=== PATIENT | female | born 1990 | race Caucasian/White ===

== ENCOUNTER 2016-09-09 18:05 | Inpatient (IN) | payer OTHER ==
[~2016-09-09] VITALS: Ht 160 cm; Wt 51.7 kg
[2016-09-09 19:44] LABS: *URINE HCG, QUAL NEGATIVE (NEGATIVE)
[2016-09-09 19:46] LABS: *AMPHETAMINE, URINE POSITIVE (NEGATIVE); *BARBITURATE, URINE NEGATIVE (NEGATIVE); *CANNABINOID, URINE NEGATIVE (NEGATIVE); *COCCAINE, URINE NEGATIVE (NEGATIVE); *OPIATE, URINE POSITIVE (NEGATIVE); *PHENCYCLIDINE SCREEN,URINE NEGATIVE (NEGATIVE)
[2016-09-09 20:00] VITALS: BP 110/75
[2016-09-09] MEDS ORDERED: diphenhydrAMINE 50 MG CAPSULE PO PRN (20:00)
[2016-09-09] MEDS ORDERED: MIRALAX 17 GM POWD.PACK PO PRN (20:00)
[2016-09-09] MEDS ORDERED: ONDANSETRON ODT 4 MG TAB.RAPDIS SL PRN (20:00)
[2016-09-09] MEDS ORDERED: METHOCARBAMOL 750 MG TABLET PO PRN (20:00)
[2016-09-09] MEDS ORDERED: ACETAMINOPHEN 325 MG TABLET PO PRN (20:00)
[2016-09-09] MEDS ORDERED: MAG HYDROX/AL HYDROX/SIMETH 30 ML LIQUID UDC PO PRN (20:00)
[2016-09-09] MEDS ORDERED: MAGNESIUM HYDROXIDE 30 ML LIQUID UDC PO PRN (20:00)
[2016-09-09] MEDS ORDERED: ONDANSETRON 4 MG/2 ML VIAL IM PRN (20:00)
[2016-09-09] MEDS ORDERED: DICYCLOMINE HCL 20 MG TABLET PO PRN (20:00)
[2016-09-09] MEDS ORDERED: LOPERAMIDE HCL 2 MG CAPSULE PO PRN ×2 (20:00)
[2016-09-09] MEDS ORDERED: BUPRENORPHINE HCL 2 MG TAB.SUBL SL PRN (20:00)
[2016-09-09] MEDS ORDERED: IBUPROFEN 600 MG TABLET PO PRN (20:00)
[2016-09-09] MEDS ORDERED: CLONIDINE HCL 0.1 MG TABLET PO PRN (20:00)
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
[2016-09-09 22:08] LABS: BASOPHILS # (AUTO) 0.1 K/uL (0.0-8.0); BASOPHILS % (AUTO) 0.8 % (0.0-2.0); EOSINOPHILS # (AUTO) 0.1 K/uL (0.0-0.7); EOSINOPHILS % (AUTO) 1.9 % (0.0-7.0); HEMATOCRIT 34.1 % (31.2-41.9); HEMOGLOBIN 12.3 g/dL (10.9-14.3); LYMPHOCYTES # (AUTO) 3.5 K/uL (20.0-40.0); LYMPHOCYTES % (AUTO) 47.8 % (20.5-51.5); MEAN CORPUSCULAR HEMOGLOBIN 29.5 uug (24.7-32.8); MEAN CORPUSCULAR HGB CONC 36 g/dL (32.3-35.6); MONOCYTES # (AUTO) 0.5 K/uL (2.0-10.0); MONOCYTES % (AUTO) 6.3 % (0.0-11.0); NEUTROPHILS # (AUTO) 3.2 K/uL (1.8-8.9); NEUTROPHILS % (AUTO) 43.2 % (38.5-71.5); PLATELET COUNT (AUTO) 195 K/uL (179-408); RED BLOOD CELL COUNT(AUTO) 4.15 MIL/uL (3.63-4.92); RED CELL DISTRIBUTION WIDTH 13.4 % (12.3-17.7); WHITE BLOOD COUNT (AUTO) 7.4 K/uL (3.8-11.8)
[2016-09-09 22:17] LABS: ETHANOL < 3 MG/DL (0-0)
[2016-09-09 22:20] LABS: ALANINE AMINOTRANSFERASE 18 U/L (14-59); ALBUMIN 3.9 g/dL (3.4-5.0); ALKALINE PHOSPHATASE 84 U/L (50-136); ASPARTATE AMINOTRANSFERASE 15 U/L (15-37); BILIRUBIN,TOTAL 0.5 mg/dL (0.2-1.0); CALCIUM 9.2 mg/dL (8.5-10.1); CARBON DIOXIDE 31 mmol/L (21-32); CHLORIDE 103 mmol/L (98-107); GFR 68 mL/min (>60); GLUCOSE 77 mg/dL (74-106); POTASSIUM 4.5 mmol/L (3.5-5.1); SODIUM SERUM 140 mmol/L (136-145); TOTAL PROTEIN, SERUM 7.8 g/dL (6.4-8.2); UREA NITROGEN, BLOOD 16 mg/dL (7-18)
[2016-09-09 22:36] LABS: HIV-1 p24 ANTIGEN NON REACTIVE (NONREACTIVE); HIV-1/2 ANTIBODY NON REACTIVE (NONREACTIVE)
[2016-09-09 22:44] LABS: THYROID STIMULATING HORMONE 1.015 mIU/mL (0.358-3.740)
[2016-09-10 02:34] VITALS: BP 106/61
[2016-09-10 04:00] VITALS: BP 87/50
--- NOTE | 2016-09-10 06:42 | NUR ---
END OF SHIFT NOTE : Pt. is 25 years old female admitted on 09/09/2016 at 19:37 to [facility] for opiates, meth. Dependency. Pt. is Full Code, NKA for food and meds, on She denies history of hallucinations, SI/HI. Skin is warm, dry and intact. Pt. complains of increased anxiety, non visible tremor. Abdomen soft and non- distended. Pt denies nausea, vomiting and diarrhea at this time. Last BM was on 09/09/2016. Last COWS=4 , [id number] , voided x1, slept 6 hours . Safety measures in place : bed on lowest position with side rails x2 up for safety, call light within reach. Will continue to monitor closely and offer help.
--- NOTE | 2016-09-10 07:20 | NUR ---
Start of Shift Report from night nurse: Pt is a 25 y/o female here for Opiates r/t Heroin 1 g IV daily, Methamphetamine 1/2gram IV daily, Marijuana and alcohol used occasionally; 5 day Subutex taper ordered. Pt is a full code, regular diet, NKA, fall precautions ordered. Hhx: back pain,k Scoliosis, smoker, right wrist surgery in 2006, Chlamydia unknown year, and multiple relapses at different detox centers. V/S stable yet low 87/49 in supine. Skin is not intact with multiple tracts on BUE's. No PRN medications given last night. No new orders or labs endorsed to me. Last COWS. Pt is asleep in room. Will cont. to monitor the pt.
[2016-09-10 08:00] VITALS: BP 89/51
[2016-09-10] MEDS: BUPRENORPHINE HCL 2 MG TAB.SUBL SL SCH ×4 (09:00→21:35)
[2016-09-10] MEDS ORDERED: TUBERCULIN,PURIF.PROT.DERIV. 5 TU/0.1 ML TEST ID ONE (09:00)
--- NOTE | 2016-09-10 10:30 | NUR ---
Medication Lou-Bypzocsknaadct-Msjozpn Pt is in room asleep so HELD Subutex 4mg SL scheduled at 0900H and notified MD during my shift. Will cont. to monitor the pt.
[2016-09-10 12:00] VITALS: BP 98/66
[2016-09-10] MEDS: MULTIVITAMINS,THERAPEUTIC TABLET PO SCH (12:48)
[2016-09-10 16:00] VITALS: BP 109/67
[2016-09-10] MEDS: HYDROXYZINE PAMOATE 25 MG CAPSULE PO PRN (16:35)
--- NOTE | 2016-09-10 16:40 | NUR ---
PRN Medication Administration Pt is in room c/o muscle tension and is anxious with crying in bed thinking of her 2 year old son; PRN Vistaril 25mg and Robaxin 750mg given as ordered. Will reassess in 1H.
--- NOTE | 2016-09-10 17:40 | NUR ---
Reassessment Pt is in room eating dinner with no crying and denies muscle tension; Vistaril and Robaxin is effective. Will cont. to monitor the pt.
--- NOTE | 2016-09-10 19:20 | NUR ---
End of Shift Report to night nurse: Pt is a 25 y/o female here for Opiates r/t Heroin 1 g IV daily, Methamphetamine 1/2gram IV daily, Marijuana and alcohol used occasionally; 5 day Subutex taper ordered. Pt is a full code, regular diet, NKA, fall precautions ordered. Hhx: back pain,k Scoliosis, smoker, right wrist surgery in 2006, Chlamydia unknown year, and multiple relapses at different detox centers. V/S stable yet low 87/49 in supine. Skin is not intact with multiple tracts on BUE's. Pt missed the 0900am dose of Subutex 4mg since she was asleep & Dr. Willett notified. PRN Vistaril 25mg and Robaxin 750mg given at 1640pm r/t anxiety with crying and muscle tension and is effective. TB test done on Left FA. Last COWS 8.
[2016-09-10 20:00] VITALS: BP 115/76
--- NOTE | 2016-09-10 20:00 | NUR ---
START OF SHIFT NOTE Pt is a 25 y/o female admitted for Heroin, ETOH, Meth, and Marijuana dependence and use. Pt has NKA but reported a PMH of back pain, Scoliosis, right wrist operation, and chlamydiosis. Per day shift nurse pt was started on a 5 day Subutex taper (day 1) and is tolerating medication well , with no s/e or a/r reported. Pt received Robaxin 750 mg PO PRN and Vistaril 25 mg PO PRN during the day shift. Last COW: 8 (1600). At this time pt is lying down in her asleep with no signs of discomfort/distress noted. Pt's breathing is even and unlabored. Pt was easily arousable with touch. Pt stated " I'm very tired." Pt denied any pain/discomfort. Pt was encouraged to notify staff of any changes in condition or of any concerns. Pt verbalized an understanding. All safety measures in place; side rails up x 2, bed locked and in low position, and call light is within reach. Will continue to monitor.
--- NOTE | 2016-09-10 21:40 | NUR ---
MOTRIN PRN ADMINISTRATION Pt stated " My legs are hurting. Like a 7/10 right now. Can I please get something?" Motrin 600 mg PO PRN was given. Pt was encouraged to notify staff of any changes in condition or of any further concerns. Pt verbalized an understanding. All safety measures in place. Will monitor for effectiveness.
--- NOTE | 2016-09-10 22:40 | NUR ---
CRISTHIAN PRN REASSESSMENT Pt stated " My legs feel better. The aches are less than a 3." PRN effective. Pt was encouraged to notify staff of any changes in condition or of any concerns. Pt verbalized an understanding. All safety measures in place. Will continue to monitor.
--- NOTE | 2016-09-11 | NUR ---
COW AND VITALS REFUSED Pt refused to be assessed and have vitals taken at this time. Pt was encouraged x 3 with risks and benefits explained but the pt still declined. All safety measures in place. Will continue to monitor. Addendum: 09/11/16 at 0032 by GILA LEIVA LVN Amended: Links added.
--- NOTE | 2016-09-11 07:03 | NUR ---
COW AND VITALS REFUSED Pt refused to be assessed and have vitals taken at this time. Pt was encouraged x 3 with risks and benefits explained, but the pt still refused. All safety measures in place. Will continue to monitor. Addendum: 09/11/16 at 0704 by GILA LEIVA LVN Amended: Links added.
--- NOTE | 2016-09-11 07:20 | NUR ---
Start of Shift Report from night nurse: Pt is a 25 y/o female here for Opiates r/t Heroin 1 g IV daily, Methamphetamine 1/2gram IV daily, Marijuana and alcohol used occasionally; 5 day Subutex taper ordered. Pt is a full code, regular diet, NKA, fall precautions ordered. Hhx: Back pain, Scoliosis, smoker, right wrist surgery in 2006, Chlamydia unknown year, and multiple relapses at different detox centers. V/S stable with last BP 115/66. Skin is not intact with multiple tracts on BUE's. PRN Motrin given last night for STORY. No new orders or labs endorsed to me. Last COWS 7. Pt is asleep in room. Will cont. to monitor the pt.
--- NOTE | 2016-09-11 07:24 | NUR ---
END OF SHIFT NOTE Pt is a 25 y/o female admitted for Heroin, ETOH, Meth, and Marijuana dependence and use. Pt has NKA but reported a PMH of back pain, Scoliosis, right wrist operation, and chlamydiosis. Pt continues on a 5 day Subutex taper (day 2) and is tolerating medication well , with no s/e or a/r reported. Pt received Motrin 600 mg PO PRN during the shift. Last COW: 7 (1999). Pt slept for a total of 8 hours. All safety measures in place; side rails up x 2, bed locked and in low position, and call light is within reach. Endorsed to the oncoming nurse.
[2016-09-11 08:00] VITALS: BP 105/76
[2016-09-11] MEDS: MULTIVITAMINS,THERAPEUTIC TABLET PO SCH (09:32)
[2016-09-11] MEDS: BUPRENORPHINE HCL 2 MG TAB.SUBL SL SCH ×3 (09:33→21:58)
[2016-09-11] MEDS: HYDROXYZINE PAMOATE 25 MG CAPSULE PO PRN (10:00)
--- NOTE | 2016-09-11 10:05 | NUR ---
PRN Medication Administration Pt is in room crying and anxious after the therapist consult and evaluation; PRN Vistaril 25mg PO given as ordered. Will reassess in 1H.
--- NOTE | 2016-09-11 11:00 | NUR ---
Reassessment Pt is involved in group activity and interacting with others, no s/sx of anxiety and no crying or non-verbal cues noted; Vistaril is effective. Will cont. to monitor the pt.
[2016-09-11 12:00] VITALS: BP 98/53
--- NOTE | 2016-09-11 12:27 | NUR ---
PRN Medication Administration-Clonidine Pt is in room standing with restlessness, anxiety, HR 110, BP 124/77, goose bumps present, flushed, nasal congestion & skin is slightly clammy, CIWA 13; PRN Clonidine 0.1mg PO given as ordered. Will reassess in 1H.
--- NOTE | 2016-09-11 13:30 | NUR ---
Reassessment Pt is in room in supine position asleep r/t Clonidine SE's; no anxiety and no non-verbal cues of w/d present; PRN Clonidine is effective. Will cont to monitor the pt.
[2016-09-11 14:12] LABS: HCV AB <0.1 s/co ratio (0.0-0.9); HEPATITIS B CORE AB, IgM Negative (Negative); HEPATITIS B SURFACE AG Negative (Negative)
[2016-09-11] MEDS: CLONIDINE HCL 0.1 MG TABLET PO SCH ×2 (15:00→21:00)
[2016-09-11 16:00] VITALS: BP 107/72
--- NOTE | 2016-09-11 17:45 | NUR ---
Late Medication Administration, Medication Non-Administration Pt woke up before dinner and requested for medications to be given after dinner and pt refused the scheduled Clonidine 0.1mg dose at 1500H since she states it sedated her so Clonidine HELD and scheduled 1500H medications given late. Will cont. to monitor the pt.
[2016-09-11] MEDS: GABAPENTIN 300 MG CAPSULE PO SCH ×2 (17:53→21:58)
[2016-09-11] MEDS: NEOMY/BACITRAC/POLYMI OINT 28.35 GM TUBE TOP SCH (17:54)
[2016-09-11] MEDS: BACLOFEN 10 MG TABLET PO SCH ×2 (17:54→21:59)
--- NOTE | 2016-09-11 19:25 | NUR ---
START OF SHIFT NOTE Pt is a 25 y/o female admitted for Heroin, ETOH, Meth, and Marijuana dependence and use. Pt has NKA but reported a PMH of back pain, Scoliosis, right wrist operation, and chlamydiosis. Per day shift nurse pt continues on a 5 day Subutex taper (day 2) and is tolerating medication well , with no s/e or a/r reported. Pt received Clonidine 0.1 mg PO PRN and Vistaril 25 mg PO PRN during the day shift. Last COW: 6 (1600). At this time pt is lying down in her asleep with no signs of discomfort/distress noted. Pt's breathing is even and unlabored. Pt was easily arousable with touch. Pt stated "I'm okay I think that med I took earlier made me very sleepy." Pt denied any pain/discomfort. Pt was encouraged to notify staff of any changes in condition or of any concerns. Pt verbalized an understanding. All safety measures in place; side rails up x 2, bed locked and in low position, and call light is within reach. Will continue to monitor.
--- NOTE | 2016-09-11 19:37 | NUR ---
End of Shift Report to night nurse: Pt is a 25 y/o female here for Opiates r/t Heroin 1 g IV daily, Methamphetamine 1/2gram IV daily, Marijuana and alcohol used occasionally; 5 day Subutex taper ordered. Pt is a full code, regular diet, NKA, fall precautions ordered. Hhx: Back pain, Scoliosis, smoker, right wrist surgery in 2006, Chlamydia unknown year, and multiple relapses at different detox centers. V/S stable yet pt has tachycardia 110 during my shift. Skin is not intact with multiple tracts on BUE's with new orders for topical atbx ointment. PRN Vistaril 25mg given at 10am and PRN Clonidine given at 1100H pt refused the new order for scheduled clonidine at 1500H since the 100H dose sedated her. Last COWS 6.
[2016-09-11 20:00] VITALS: BP 107/65
[2016-09-12] VITALS: BP 84/52
[2016-09-12 04:00] VITALS: BP 101/66
--- NOTE | 2016-09-12 07:05 | NUR ---
Start of Shift Endorsement received from nightshift nurse. Pt is a 25 y/o female admitted for Heroin, Meth and alcohol dependence under the care of Dr. Willett. Pt has been placed on a 5 day Subutex taper. Pt is experiencing mild withdrawals at this time AEB COWS 1 at 0400. VS WNL, Full Code. PT slept 10 hours after taking a one time dose of clonidine. PT is alert and oriented x4. Pt is in STABLE condition at this time. Remains compliant with medication and diet regimen. All needs have been met, All safety measures in place per hospital policy. Bed in lowest position, side rails up x2, call-light within reach. Will continue to monitor .
--- NOTE | 2016-09-12 07:32 | NUR ---
END OF SHIFT NOTE Pt is a 25 y/o female admitted for Heroin, ETOH, Meth, and Marijuana dependence and use. Pt has NKA but reported a PMH of back pain, Scoliosis, right wrist operation, and chlamydiosis. Pt continues on a 5 day Subutex taper (day 3) and is tolerating medication well , with no s/e or a/r reported.Pt didn't receive any PRNS during the shift. Last COW: 1 (0400). Pt slept for a total of 11 hours. All safety measures in place; side rails up x 2, bed locked and in low position, and call light is within reach. Endorsed to the oncoming nurse.
[2016-09-12 08:00] VITALS: BP 111/71
[2016-09-12] MEDS: BACLOFEN 10 MG TABLET PO SCH ×3 (08:35→21:20)
[2016-09-12] MEDS: GABAPENTIN 300 MG CAPSULE PO SCH ×3 (08:35→21:22)
[2016-09-12] MEDS: MULTIVITAMINS,THERAPEUTIC TABLET PO SCH (08:35)
[2016-09-12] MEDS: NEOMY/BACITRAC/POLYMI OINT 28.35 GM TUBE TOP SCH ×2 (08:36→17:00)
[2016-09-12] MEDS: CLONIDINE HCL 0.1 MG TABLET PO SCH ×2 (08:36→21:21)
[2016-09-12] MEDS ORDERED: BUPRENORPHINE HCL 2 MG TAB.SUBL SL SCH (09:00)
[2016-09-12] MEDS: HYDROXYZINE PAMOATE 25 MG CAPSULE PO PRN (11:53)
--- NOTE | 2016-09-12 11:53 | NUR ---
PRN Vistaril Administered PRN Vistaril 25mg for moderate anxiety reported by pt. Educated pt on s/e of medication. will re-assess.
[2016-09-12 12:00] VITALS: BP 103/63
--- NOTE | 2016-09-12 12:20 | NUR ---
Therapist encouraged client to attend group therapy session.
--- NOTE | 2016-09-12 12:30 | NUR ---
Medication Re-assessment Pt reports anxiety decreasing, rates it 2/10 at this time. Medication was effective.
[2016-09-12] MEDS: BUPRENORPHINE HCL 2 MG TAB.SUBL SL SCH ×2 (14:46→21:00)
[2016-09-12 16:00] VITALS: BP 100/68
--- NOTE | 2016-09-12 18:53 | NUR ---
End of Shift Endorsement given to nightshift nurse. Pt is a 25 y/o female admitted for Heroin, Meth and alcohol dependence under the care of Dr. Willett. Pt has been placed on a 5 day Subutex taper. Pt is experiencing mild withdrawals at this time AEB COWS 3 at 1600. Pt refused Subutex at 1500, reporting that she didn't need it. Pt received PRN Vistaril 25mg due to moderate anxiety and agitation reported by PT. Medication was effective. Educated Pt on s/e of her medications, educated pt on deep breathing technique. Pt participated in groups and activities. Intake: 1960, Void x4, BM x1. VS WNL, Full Code. PT is alert and oriented x4. Pt is in STABLE condition at this time. Remains compliant with medication and diet regimen. All needs have been met, All safety measures in place per hospital policy. Bed in lowest position, side rails up x2, call-light within reach. Will continue to monitor .
--- NOTE | 2016-09-12 19:26 | NUR ---
START OF SHIFT NOTE Pt is a 25 y/o female admitted for Heroin, ETOH, Meth, and Marijuana dependence and use. Pt has NKA but reported a PMH of back pain, Scoliosis, right wrist operation, and chlamydiosis. Per day shift nurse pt continues on a 5 day Subutex taper (day 3) and is tolerating medication well , with no s/e or a/r reported. Pt received Vistaril 25 mg PO PRN during the day shift. Last COW 3 (1600). At this time pt is in the client kitchen getting snacks. Pt stated " I feel so much better now. I didn't take my Subutex earlier I was sleeping way too much" Pt denies any pain/discomfort. Pt was encouraged to notify staff of any changes in condition or of any concerns. Pt verbalized an understanding. All safety measures in place; side rails up x 2, bed locked and in low position, and call light is within reach. Will continue to monitor.
[2016-09-12 20:00] VITALS: BP 111/78
--- NOTE | 2016-09-13 | NUR ---
COW AND VITALS REFUSED Pt refused to be assessed and have vitals taken at this time. Pt was encouraged x 3 with risks and benefits explained, but the pt still declined. All safety measures in place. Will continue to monitor. Addendum: 09/13/16 at 0247 by GILA LEIVA LVN Amended: Links added.
--- NOTE | 2016-09-13 04:00 | NUR ---
COW AND VITALS REFUSED Pt refused to be assessed and have vitals taken at this time. Pt was encouraged x 3 with risks and benefits explained, but the pt still declined. All safety measures in place. Will continue to monitor. Addendum: 09/13/16 at 0532 by GILA LEIVA LVN Amended: Links added.
--- NOTE | 2016-09-13 07:08 | NUR ---
Start of Shift Endorsement received from nightshift nurse. Pt is a 25 y/o female admitted for Heroin, Meth and alcohol dependence under the care of Dr. Willett. Pt has been placed on a 5 day Subutex taper. Pt is experiencing mild withdrawals at this time AEB COWS 6 at 2000. VS WNL, Full Code. PT slept 8 hours, pt refused the scheduled dose of Subutex at 2100. Pt did not receive any PRN medications. Reports readiness for sobriety and discharge. PT is alert and oriented x4. Pt is in STABLE condition at this time. Remains compliant with medication and diet regimen. All needs have been met, All safety measures in place per hospital policy. Bed in lowest position, side rails up x2, call-light within reach. Will continue to monitor .
--- NOTE | 2016-09-13 07:22 | NUR ---
END OF SHIFT NOTE Pt is a 25 y/o female admitted for Heroin, ETOH, Meth, and Marijuana dependence and use. Pt has NKA but reported a PMH of back pain, Scoliosis, right wrist operation, and chlamydiosis. Pt continues on a 5 day Subutex taper (day 4) and is tolerating medication well , with no s/e or a/r reported. Pt didn't receive any PRNS during the shift. Last COW 6 (1999). Pt slept for a total of 6 hours. All safety measures in place; side rails up x 2, bed locked and in low position, and call light is within reach. Endorsed to the oncoming nurse.
[2016-09-13 08:00] VITALS: BP 104/70
[2016-09-13] MEDS: CLONIDINE HCL 0.1 MG TABLET PO SCH ×2 (08:36→21:17)
[2016-09-13] MEDS: MULTIVITAMINS,THERAPEUTIC TABLET PO SCH (08:36)
[2016-09-13] MEDS: BACLOFEN 10 MG TABLET PO SCH ×3 (08:36→21:17)
[2016-09-13] MEDS: GABAPENTIN 300 MG CAPSULE PO SCH ×3 (08:36→21:17)
[2016-09-13] MEDS: NEOMY/BACITRAC/POLYMI OINT 28.35 GM TUBE TOP SCH ×2 (08:37→17:00)
[2016-09-13] MEDS ORDERED: BUPRENORPHINE HCL 2 MG TAB.SUBL SL SCH (09:00)
[2016-09-13 12:00] VITALS: BP 100/55
[2016-09-13 16:00] VITALS: BP 109/58
[2016-09-13 16:33] LABS: *AMPHETAMINE, URINE NEGATIVE (NEGATIVE); *BARBITURATE, URINE NEGATIVE (NEGATIVE); *CANNABINOID, URINE NEGATIVE (NEGATIVE); *COCCAINE, URINE NEGATIVE (NEGATIVE); *OPIATE, URINE POSITIVE (NEGATIVE); *PHENCYCLIDINE SCREEN,URINE NEGATIVE (NEGATIVE)
--- NOTE | 2016-09-13 19:09 | NUR ---
End of Shift Endorsement given to nightshift nurse. Pt is a 25 y/o female admitted for Heroin, Meth and alcohol dependence under the care of Dr. Willett. Pt has been placed on a 5 day Subutex taper. Pt is experiencing mild withdrawals at this time AEB COWS 1 at 1600. PT has been scheduled to be discharged on 09/04/16. All documentation has been completed, pt has been informed to provide a urine sample for UDS. Pt participated in groups and activities. Intake: 1450, Void x2, BM x1. VS WNL, Full Code. PT is alert and oriented x4. Pt is in STABLE condition at this time. Remains compliant with medication and diet regimen. All needs have been met, All safety measures in place per hospital policy. Bed in lowest position, side rails up x2, call-light within reach. Will continue to monitor .
--- NOTE | 2016-09-13 19:15 | NUR ---
Start of Shift Patient Received. Patient is in activities room participating in group meeting. Patient is a 25 year old female admitted on 09/09/16 for Opiate Dependence, under the care of Dr. Willett. Patient was placed on a 5 day Subutex taper which has been D/Cd. Patient verbalizes no known allergies, wishes to be full code, following a regular diet, skin intact, placed on fall precautions. Patients past medical History of Chronic back pain, Scoliosis, Right wrist Surgery in 2006, and History of Chlamydia. Per endorsement, patient is set for discharge tomorrow 09/13/16 to [facility]. At 1600 last COWS noted 2. All needs attended to promptly. Will continue plan of care as ordered.
[2016-09-13 20:30] VITALS: BP 104/77
[2016-09-13] MEDS ORDERED: Ibuprofen PO (22:20)
[2016-09-13] MEDS ORDERED: HYDR-3895 PO (22:20)
[2016-09-13] MEDS ORDERED: Baclofen PO (22:20)
[2016-09-13] MEDS ORDERED: DICY20TA28 PO (22:20)
[2016-09-13] MEDS ORDERED: DIPH50CA37 PO (22:20)
[2016-09-13] MEDS ORDERED: Gabapentin PO ×2 (22:20)
[2016-09-13] MEDS ORDERED: CLON0.1T14 PO (22:20)
[2016-09-14 00:21] VITALS: BP 112/57
[2016-09-14 04:47] VITALS: BP 100/60
--- NOTE | 2016-09-14 07:00 | NUR ---
End of Shift Patient is in bed sleeping. Breathing and non labored. No signs of pain or discomfort noted. Patient is a 25 year old female admitted on 09/09/16 for Opiate Dependence, under the care of Dr. Willett. Patient was placed on a 5 day Subutex taper which has been D/Cd. Patient verbalizes no known allergies; wishes to be full code, following a regular diet, skin intact, placed on fall precautions. Patients past medical History of Chronic back pain, Scoliosis, Right wrist Surgery in 2006, and History of Chlamydia. Per endorsement, patient is set for discharge today to [facility]. No PRN medications administered. All needs attended to promptly. Will endorse to continue plan of care as ordered.
--- NOTE | 2016-09-14 07:49 | NUR ---
START OF SHIFT Received pt this am aox4. Pt is scheduled for discharge today. Pt is feeling anxious for discharge but states she feels ready. No PRNs needed during shift per night nurse. Last COWS 0 per night nurse. Pt slept 6 hours. Will administer morning medications. Will continue to monitor.
[2016-09-14 08:00] VITALS: BP 101/62
[2016-09-14 08:24] VITALS: BP 101/62
[2016-09-14] MEDS: CLONIDINE HCL 0.1 MG TABLET PO SCH (08:24)
[2016-09-14] MEDS: MULTIVITAMINS,THERAPEUTIC TABLET PO SCH (08:24)
[2016-09-14] MEDS: BACLOFEN 10 MG TABLET PO SCH (08:24)
[2016-09-14] MEDS: GABAPENTIN 300 MG CAPSULE PO SCH (08:24)
[2016-09-14] MEDS: NEOMY/BACITRAC/POLYMI OINT 28.35 GM TUBE TOP SCH (08:25)
[2016-09-14] MEDS ORDERED: BUPRENORPHINE HCL 2 MG TAB.SUBL SL SCH (09:00)
--- NOTE | 2016-09-14 09:59 | NUR ---
DISCHARGE NOTE Patient is in stable condition. Vitals WNL, pt AOx4. Skin intact, Pt denies S/I and H/I at this time. All discharge paperwork completed, signed, and dated. Pt educated about discharge instructions, what to do after discharge, when to contact MD as well as s/s to report to MD, Pt verbalized understanding. Last COWS 0. Pt was discharged from [facility] on 09/14/16 at 0940. Pt left the building with all of her belongings and rx, pt did not bring any medications with her to the unit. Pt taken to lobby by [employer] and picked up by [employer].
[2016-09-15 05:06] LABS: *AMPHETAMINE Positive (.); *CODEINE Positive (.); *HYDROMORPHONE Negative (Cutoff=300); *METHAMPHETAMINE Positive (.); *OPIATES Positive ng/mL (Cutoff=300)
== END 2016-09-14 09:40 | disposition other institution (70) | DRG 895 ==
LOC: SRC 18:46
PROVIDERS: ADMIT Internal Medicine; ATTEND Internal Medicine
PROC: HZ2ZZZZ Detoxification Services for Substance Abuse Treatment (ICD-10-PCS; principal; 2016-09-09)
PROC: HZ31ZZZ Individual Counseling for Substance Abuse Treatment, Behavioral (ICD-10-PCS; 2016-09-11)
PROC: HZ41ZZZ Group Counseling for Substance Abuse Treatment, Behavioral (ICD-10-PCS; 2016-09-12)
DX: F11.23 Opioid dependence with withdrawal (principal); D69.3 Immune thrombocytopenic purpura; Z59.0 Homelessness; Z81.1 Family history of alcohol abuse and dependence; Z81.8 Family history of other mental and behavioral disorders; Z82.0 Family history of epilepsy and other diseases of the nervous system; F17.210 Nicotine dependence, cigarettes, uncomplicated; F15.229 Other stimulant dependence with intoxication, unspecified; F41.9 Anxiety disorder, unspecified; F12.90 Cannabis use, unspecified, uncomplicated; I10 Essential (primary) hypertension; Z59.1 Inadequate housing
CPT/HCPCS: 36415; 70030-TC; 80307; 80324; 80361; 83735; 84443; 84703; 85025; 86580; 86592; 86705; 86803; 87340; 87806; G6040-TC